=== PATIENT | female | born 1950 | race African-American/Black ===

== ENCOUNTER → 2017-09-15 | Outpatient (CLI) | payer OTHER | LOC: M.RAD 09:01 | DX: Z12.31 Encounter for screening mammogram for malignant neoplasm of breast (principal) ==

== ENCOUNTER → 2017-10-01 | Outpatient (CLI) | payer OTHER | LOC: M.ULTRA 09:09 | DX: I65.23 Occlusion and stenosis of bilateral carotid arteries (principal); M47.892 Other spondylosis, cervical region; R09.89 Other specified symptoms and signs involving the circulatory and respiratory systems; R68.89 Other general symptoms and signs ==

== ENCOUNTER → 2017-10-13 | Outpatient (CLI) | payer OTHER | LOC: M.MRI 08:08 | DX: M47.22 Other spondylosis with radiculopathy, cervical region (principal) ==

== ENCOUNTER → 2018-11-30 | Outpatient (CLI) | payer OTHER | LOC: M.RAD 10:29 | DX: Z12.31 Encounter for screening mammogram for malignant neoplasm of breast (principal) ==

== ENCOUNTER → 2019-04-26 | Outpatient (CLI) | payer OTHER | LOC: M.ULTRA 07:19 | DX: N28.9 Disorder of kidney and ureter, unspecified (principal); R04.0 Epistaxis ==

== ENCOUNTER → 2020-02-14 | Outpatient (CLI) | payer MEDICARE | LOC: M.RAD 09:20 | PROVIDERS: ATTEND Family Medicine | DX: Z12.31 Encounter for screening mammogram for malignant neoplasm of breast (principal); N64.89 Other specified disorders of breast ==

== ENCOUNTER → 2020-10-09 | Outpatient (CLI) | payer MEDICARE | LOC: M.MRI 10:41 | PROVIDERS: ATTEND Family Medicine | DX: M50.31 Other cervical disc degeneration, high cervical region (principal); M48.02 Spinal stenosis, cervical region ==

== ENCOUNTER → 2021-03-07 | Outpatient (CLI) | payer MEDICARE | LOC: M.RAD 10:00 | PROVIDERS: ATTEND Family Medicine | DX: Z12.31 Encounter for screening mammogram for malignant neoplasm of breast (principal) ==